=== PATIENT | female | born 1960 | race Caucasian/White ===

== ENCOUNTER 2016-08-18 06:07 | Inpatient (IN) ==
[2016-08-18] MEDS: *HR* HYDROcodone/Acet 5/325 mg TABLET PO PRN (00:02)
[2016-08-18] MEDS ORDERED: Albuterol 2.5 MG/3 ML NEBULIZER ONE (06:24)
[2016-08-18] MEDS ORDERED: Ringers Solution, Lactated 1,000 ML IVC SCH (06:30)
[2016-08-18] MEDS ORDERED: Albuterol 2.5 MG/3 ML NEBULIZER IH ONE (06:30)
[2016-08-18] MEDS ORDERED: CeFAZolin Pre 2,000 MG/100 ML 2,000 MG/100 ML BAG IVPB ONE (06:30)
[2016-08-18] MEDS ORDERED: Lidocaine -MPF 4% 5 ML AMPUL ONE (06:53)
[2016-08-18] MEDS ORDERED: Dexamethasone 4 MG/ML VIAL ONE (06:53)
[2016-08-18] MEDS ORDERED: Ondansetron 4 MG/2 ML VIAL ONE (06:53)
[2016-08-18] MEDS ORDERED: *HR* Rocuronium Bromide 50 MG/5 ML VIAL ONE ×2 (06:53→08:59)
[2016-08-18] MEDS ORDERED: Lidocaine -MPF 2% 2 ML VIAL ONE (06:53)
[2016-08-18] MEDS ORDERED: *HR* Propofol 200 MG/20 ML VIAL IVP ONE (06:55)
[2016-08-18] MEDS ORDERED: *HR* FentaNYL (PF) 100 MCG/2 ML VIAL ONE ×3 (06:55→10:05)
[2016-08-18] MEDS ORDERED: *HR* Midazolam HCl 2 MG/2 ML VIAL ONE (06:55)
--- NOTE | 2016-08-18 06:56 | Anesthesia Evaluation PreOp ---
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: Denies Any Significant HX Other Medical History: Denies Any Significant HX, GERD Anesthesia History: No Prior Anesthetic Complications, Past Anesthesia (Right ovarian cyst) : No Alcohol Use: none Drug use: none Medications and Allergies Lisinopril/Hydrochlorothiazide [Zestoretic 20-25 mg Tablet] 0.5 tab PO DAILY [History] Omeprazole [PriLOSEC] 20 mg PO DAILY 08/18/16 [History] Allergies No Known Allergies Allergy (Verified 08/18/16 06:52) - Meds/Allergy Pre-op Review Medications Reviewed: Yes Allergies Reviewed: Yes Beta Blockers on Current Med List: No Anesthesia Results - Labs Laboratory Tests 08/04/16 08/04/16 12:10 12:10 Hgb 14.5 Potassium 4.0 - Imaging EKG: image reviewed (NSR) Anesthesia Exam O2 Sat Height 1.59 m Height 1.59 m Height 1.59 m Weight 73.482 kg Weight 73.482 kg Weight 73.482 kg O2 Sat by Pulse Oximetry 92 Vital Signs Temp Pulse Resp BP Pulse Ox 98.3 F 57 18 131/73 92 L 08/18/16 06:26 08/18/16 06:26 08/18/16 06:26 08/18/16 06:26 08/18/16 06:26 Height: 5'2.5'' Weight: 164# - HEENT Pupil (Motor): Pupils equal, EOMI Mallampati: II Teeth: Normal Oral Opening: Greater than 3 - COORDINATE MEASURING MACHINE TECHNICIAN LOC: Oriented COORDINATE MEASURING MACHINE TECHNICIAN Motor: Normal RUE, Normal LUE, Normal RLE, Normal LLE, Normal Face - Cardiac Rhythm: Regular Murmur: None JVD: No - Pulmonary Breath Sounds: bilateral Clear Respiratory Effort: Symmetrical Anesthesia Assess/Plan ASA Score: 2 Modified Hannacroix Scale for Level of Consciousness: Cooperative, oriented, and tranquil Anesthetic Plan: General Autologous Blood: Yes Monitoring Plan: Standard Monitors Recovery Plan: PACU
--- NOTE | 2016-08-18 07:01 | Urology History & Physical ---
Date of Encounter: 08/18/16 Time of Encounter: 06:59 Assessment and Plan (1) Vaginal vault prolapse Current Visit: Yes Status: Acute plan to proceed with abd sacrocolpopexy after hysterectomy by LABOR RELATIONS OFFICER. all questions answered. History of Present Illness Chief complaint: prolapse HPI: Ms. Bender is a 56 year old female with significant vaginal vault prolapse. here for hysterectomy and ASCP. pt has no new issues. Past Med Surg Social Fam HX - Past Medical History Medical history: GERD, hypertension, other Psychiatric history: no psych history - Past Surgical History Surgical History: other - Social History Smoking Status: Current every day smoker Packs per day: 1 Smokeless Tobacco Status: No Alcohol use: none Drug use: none Medications and Allergies Lisinopril/Hydrochlorothiazide [Zestoretic 20-25 mg Tablet] 0.5 tab PO DAILY [History] Omeprazole [PriLOSEC] 20 mg PO DAILY 08/18/16 [History] Allergies No Known Allergies Allergy (Verified 08/18/16 06:52) Review of Systems - Cardiovascular no chest pain Exam Initial Vital Signs Temp Pulse Resp BP Pulse Ox 98.3 F 57 18 131/73 92 L 08/18/16 06:26 08/18/16 06:26 08/18/16 06:26 08/18/16 06:26 08/18/16 06:26 - General physical appearance Present: well developed, no distress - Abdomen Abdomen: Present: soft Urology Results - Labs All other labs normal.
[2016-08-18 07:12] LABS: Basophils # 0.1 K/mcL (0.0-0.2); Basophils % 0.7 %; Eosinophils # 0.3 K/mcL (0.0-0.6); Eosinophils % 2.7 %; Hematocrit 39.2 % (35.3-44.9); Hemoglobin 13.3 g/dL (11.5-15.4); Immature Granulocytes % 0.5 % (0-4); Lymphocytes # 4.6 K/mcL (0.6-4.6); Lymphocytes % 41.7 %; Mean Corpuscular HGB Conc 33.9 g/dL (31.6-35.5); Mean Corpuscular Hemoglobin 30.1 pg (28.0-33.3); Mean Corpuscular Volume 88.7 fL (83.0-100.0); Mean Platelet Volume 9.6 fL (9.4-12.4); Monocytes # 0.9 K/mcL (0.0-1.3); Monocytes % 8.3 %; Platelet Count 336 K/mcL (140-400); Red Blood Count 4.42 M/mcL (3.82-4.97); Red Cell Distribution Width 12.9 % (11.5-14.5); Segmented Neutrophils % 46.1 %
--- NOTE | 2016-08-18 07:52 | History & Physical Report ---
Date of Encounter: 08/18/16 Time of Encounter: 07:50 24 Hour HP Update - Instructions Instructions: If the History and Physical is less than 30 days old and was completed prior to A.M. admission and or procedure and has NOT been updated on calendar day of procedure please complete this update prior to performing procedure. - Update Patient reports changes in Medical Condition: No Changes in assessment/condition: No Changes in Medication: No Preop tests/diagnostics Reviewed: Yes Surgery Remains Indicated: Yes Consent for Planned Operative Procedure(s) Verified: Yes - Pre-Operative Checklist Preoperative Checklist Indicated: Yes Prophylactic Antibiotic Ordered: Yes Home Medications Include Beta Tan: No Beta Tan Taken Today (Day of Surgery): No Beta Tan Taken Yesterday (Day Prior to Surgery): No Is VTE Prophylaxis Indicated?: Yes
[2016-08-18] MEDS ORDERED: EPHEDrine 50 MG/ML VIAL ONE (08:31)
[2016-08-18] MEDS ORDERED: Water for inj. (sterile) 10 ML IV ONE (08:31)
[2016-08-18] MEDS ORDERED: *HR* Promethazine 25 MG/ML VIAL IVP PRN (08:42)
[2016-08-18] MEDS ORDERED: Ondansetron 4 MG/2 ML VIAL IVP ONE (08:42)
[2016-08-18] MEDS ORDERED: *HR* Labetalol 100 MG/20 ML MDV IVP PRN (08:42)
[2016-08-18] MEDS ORDERED: *HR* Meperidine 25 MG/ML SYRINGE IVP PRN (08:42)
[2016-08-18] MEDS ORDERED: Dexamethasone 4 MG/ML VIAL IVP ONE (08:42)
[2016-08-18] MEDS ORDERED: *HR* HYDROmorphone 2 MG/ML SYRINGE ONE (08:49)
[2016-08-18] MEDS ORDERED: Ketamine *HR* 500 MG/10 ML MDV ONE (09:01)
[2016-08-18] MEDS ORDERED: *HR* Phenylephrine 10 MG/ML VIAL ONE (09:04)
--- NOTE | 2016-08-18 10:28 | OB/GYN Procedure Note ---
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 An adequate level of general anesthesia was given. A acosta was placed and noted to be draining clear urine from the bladder. After the patient was prepped and draped in the usual sterile manner, a Pfannenstiel incision was made approx 2 finger breadths above the pubic symphysis. Subcutaneous tissue was incised until the level of the rectus fascia was reached. A rayo was made in the fascia. This was extended the length of the incision using Cullen scissors. The recti muscles were . The peritoneum was tented between two Lacie clamps, nicked with the knife and the incision extended vertically up and down taking care to avoid the bladder at the lower pole. The bowels grossly appeared normal. The uterus, tubes and ovaries were observed and noted to be normal. The Book Lei retractor was set up with paddings to assist with exposure. 0-vicryl suture was used to suture ligate the right round ligament. The bovie was used to transect the round ligament allowing entry through the anterior leaf of the broad ligament. The anterior leaf of the broad ligament was cut using Metzenbaum scissors. The bladder that was adherent to the anterior aspect of the uterus was gently dissected using sharp and blunt dissection and it was gently pushed down with the sponge on a stick. Two fingers were inserted through the posterior leaf of the right broad ligament and the tissue was cut with Metzenbaum scissors and and dissected bluntly. Another 0-vicryl suture was used to suture ligate the left round ligament and the bovie was used to transect the left round ligament. The anterior leaf of the broad ligament was cut with the Metzenbaum scissors and dissected bluntly. The right uterine artery was then skeletonized. The ligasure device was clamped at the level of the cervical os, cauterized and cut in 2 separate bites. Similar procedure was done on the opposite side. The bladder was further dissected down using a sponge on the stick. On the right cardinal ligament, a small bite of tissue was taken using the ligasure device cauterized and cut. The same procedure was done on the left cardinal ligament. The fundus was amputated from the cervix and handed over to the scrub nurse. The cervix was approximated using figure of 8 sutures of #0 Vicryl for hemostasis. Adequate hemostasis was assured. At this point, we let Dr Ventura know that he can begin his part, i.e. abd sacrocolpopexy.
[2016-08-18] MEDS ORDERED: Neostigmine Methylsulfate 3 MG/3 ML SYRINGE ONE (11:37)
[2016-08-18] MEDS: *HR* HYDROmorphone (PF) 1 MG/ML SYRINGE IVP PRN ×11 (12:36→20:41)
--- NOTE | 2016-08-18 13:27 | Operative Note ---
Date of procedure: 08/18/16 Pre-op diagnosis: Uterine prolapse. Vaginal vault prolapse Post-op diagnosis: same Procedure: Abdominal sacral colpopexy. Cystoscopy Anesthesia: LEAH Surgeon: Sudhir Ventura Estimated blood loss (cc): 200 Specimen: None Condition: stable Disposition: PACU Procedure in Detail: Dr. Go performed a supracervical hysterectomy prior to the abdominal sacral colpopexy. When I entered the room the patient was under general anesthesia, in dorsal lithotomy, catheter in place draining clear urine, Bookwalter retractor was in place with bowel packed superiorly. The hysterectomy site was dry without active bleeding. Both ovaries were in place appeared viable. I started the procedure by placing a bowel sizer within the vagina to manipulate the apex the vagina. I was able to identify the bladder and further dissect the bladder off of the anterior aspect of the vaginal wall. I had no apparent bladder injury during this maneuver. I continued my dissection on the posterior aspect of the vaginal apex as well. I reflected the posterior peritoneum off of these locations for future placement of the Y mesh. I opened the posterior peritoneum over the sacral promontory. I continued this incision down until it connected to the apex of the vagina. I was able to identify the right ureter and verify that it was not injured during the procedure. The iliac artery was also identified and uninjured during the procedure. I had adequate exposure at this point and began to place my sutures for the sacral colpopexy. A total of 8 2-0 Prolene sutures were placed in the anterior and posterior aspect of the apex of the vagina/cervix. I then secured the Y portion of the [employer] mesh product over the apex of the vagina using the preplaced 2-0 Prolene sutures. Excess mesh material was excised. A total of 4 2-0 Prolene sutures were placed in the ligaments near the sacral promontory. No significant bleeding was observed during placement of these sutures. I was careful to avoid the right ureter during placement of the sutures. I was able to manipulate the apex of the vagina superiorly towards the sacral promontory and secured the tail of the Y mesh to my 4 preplaced sutures. This completed the sacral colpopexy. The excess mesh material was excised. I then proceeded to remove the García catheter and performed a cystoscopy using a 30 and 70 lens. There was no evidence of bladder injury, Prolene suture present, significant distortion of the bladder. Both ureteral orifices had clear reflux of urine and it did not need to place a 5 Turkmen ureteral catheter for confirmation. The vagina appeared to be well supported at this point and there was no obvious need for a rectocele or cystocele repair. I then proceeded to close the posterior peritoneum with a running 2-0 Vicryl suture over the Y mesh. The García catheter had been replaced at this time and was draining clear urine. I removed the Bookwalter and packing. We confirmed all counts were correct. I reapproximated the anterior peritoneum and rectus muscle. The right rectus muscle was quite friable potentially from retraction with the Bookwalter. It was difficult to close in the midline. The fascia was closed with a running #1 loop PDS and came together without incident. Elvis's tissue was closed with a 2-0 running Vicryl and the skin with a 4-0 Monocryl subcuticular stitch with Steri-Strips. An abdominal binder was placed.
--- NOTE | 2016-08-18 14:16 | Anesthesia Evaluation Post Op ---
Date of Encounter: 08/18/16 Time of Encounter: 14:20 - Vital Signs Vital Signs: Vital Signs/O2 Sat/Glucose, Most Current Temp Pulse Resp BP Pulse Ox 08/18/16 13:57 63 20 148/78 98 08/18/16 13:47 97.8 F 74 20 151/86 98 08/18/16 13:37 68 20 154/99 98 08/18/16 13:27 71 20 149/89 98 08/18/16 13:17 97.8 F 69 20 158/98 98 08/18/16 13:07 71 20 167/86 99 08/18/16 12:57 71 20 177/87 99 08/18/16 12:47 98.4 F 71 20 167/93 99 08/18/16 12:37 85 16 179/104 100 08/18/16 12:27 73 16 184/88 100 08/18/16 12:17 97.3 F L 89 16 181/100 99 - Lungs Lungs: Clear Ascult./Percussion - Airway Airway: Non-obstructed - Cardiovascular Regular Rate - Mental Status Mental Status: Alert & Oriented, Answers Appropriately - Pain Pain Scale: 0 - Nausea Vomiting Nausea Vomiting: Not Present - Hydration Hydration: Ice chips - Discharge PostOp Status: Transfer Patient to floor
[2016-08-18] MEDS ORDERED: *HR* Morphine 2 MG/ML SYRINGE IVP PRN (14:58)
[2016-08-18] MEDS ORDERED: Naloxone 0.4 MG/ML INJ IVP PRN (14:58)
[2016-08-18] MEDS: 0.9 % Sodium Chloride 1,000 ML IVC SCH ×2 (16:09→23:40)
[2016-08-18] MEDS: Ketorolac 30 MG/ML VIAL IVP PRN (22:08)
[2016-08-19] MEDS: *HR* HYDROcodone/Acet 5/325 mg TABLET PO PRN ×4 (04:10→21:01)
[2016-08-19] MEDS: Ondansetron 4 MG/2 ML VIAL IVP PRN ×2 (05:20→21:38)
[2016-08-19 05:50] LABS: Hematocrit 33.9 % (35.3-44.9); Mean Corpuscular HGB Conc 33.3 g/dL (31.6-35.5); Mean Corpuscular Hemoglobin 30.1 pg (28.0-33.3); Mean Corpuscular Volume 90.4 fL (83.0-100.0); Mean Platelet Volume 10.4 fL (9.4-12.4); Platelet Count 293 K/mcL (140-400); Red Blood Count 3.75 M/mcL (3.82-4.97); Red Cell Distribution Width 13.2 % (11.5-14.5)
[2016-08-19 05:52] LABS: Hemoglobin 11.3 g/dL (11.5-15.4)
[2016-08-19 06:17] LABS: BUN/Creatinine Ratio 25 (6-26); Blood Urea Nitrogen 17 mg/dL (7-20); Calcium 8.3 mg/dL (8.6-10.8); Carbon Dioxide 26 mEq/L (19-29); Chloride 104 mEq/L (98-109); Glucose 99 mg/dL (70-99); Osmolality,Calculated 288 (280-300); Potassium 4.4 mEq/L (3.5-4.5); Sodium 138 mEq/L (136-145); eGFR For African Americans > 60 (> 60); eGFR For Non-African Americans > 60 (> 60)
--- NOTE | 2016-08-19 06:49 | Urology Progress Note ---
Date of Encounter: 08/19/16 Time of Encounter: 06:47 - Assessment and Plan (1) Vaginal vault prolapse Current Visit: Yes Status: Acute Assessment and plan: remove cath today. out of bed to chair today. hold advancing diet. decrease IVF. Progress Note Subjective: still having pain, nausea Objective Initial Vital Signs Temp Pulse Resp BP Pulse Ox 98.3 F 57 18 131/73 92 L 08/18/16 06:26 08/18/16 06:26 08/18/16 06:26 08/18/16 06:26 08/18/16 06:26 - General physical appearance Present: well developed, no distress - Additional Exam nondistended. incision closed intact. dressings removed. clear urine - Labs 08/19/16 04:30 08/19/16 04:30 Diabetes panel 08/19/16 Range/Units 04:30 Sodium 138 (136-145) mEq/L Potassium 4.4 (3.5-4.5) mEq/L Chloride 104 (98-109) mEq/L Carbon Dioxide 26 (19-29) mEq/L BUN 17 (7-20) mg/dL Creatinine 0.68 (0.57-1.11) mg/dL Glucose 99 (70-99) mg/dL Calcium 8.3 L (8.6-10.8) mg/dL Calcium panel 08/19/16 Range/Units 04:30 Calcium 8.3 L (8.6-10.8) mg/dL Pituitary panel 08/19/16 Range/Units 04:30 Sodium 138 (136-145) mEq/L Potassium 4.4 (3.5-4.5) mEq/L Chloride 104 (98-109) mEq/L Carbon Dioxide 26 (19-29) mEq/L BUN 17 (7-20) mg/dL Creatinine 0.68 (0.57-1.11) mg/dL Glucose 99 (70-99) mg/dL Calcium 8.3 L (8.6-10.8) mg/dL Adrenal panel 08/19/16 Range/Units 04:30 Sodium 138 (136-145) mEq/L Potassium 4.4 (3.5-4.5) mEq/L Chloride 104 (98-109) mEq/L Carbon Dioxide 26 (19-29) mEq/L BUN 17 (7-20) mg/dL Creatinine 0.68 (0.57-1.11) mg/dL Glucose 99 (70-99) mg/dL Calcium 8.3 L (8.6-10.8) mg/dL - VTE Documentation of Mechanical Device: Intermittent pneumatic compression device Consult Discharge Plan - Plan Referrals: Wendy Wellington CNP [Primary Care Provider] -
[2016-08-19] MEDS: 0.9 % Sodium Chloride 1,000 ML IVC SCH (07:48)
[2016-08-19] MEDS ORDERED: Ondansetron 4 MG/2 ML VIAL IVP PRN (22:13)
[2016-08-19] MEDS: Simethicone 80 MG TAB.CHEW PO PRN (22:29)
--- NOTE | 2016-08-19 23:22 | Event Note ---
Date of Encounter: 08/19/16 Time of Encounter: 23:22 Patient complaining of nausea unrelieved by Zofran 4 mg. Gave another 4 mg with significant improvement in symptoms. Pt then reported that she was having difficulty taking deep breaths, same chest wall stiffness demonstrated while using her incentive spirometer. Additionally, pt complaining of right neck muscle stiffness from the base of her neck radiating to right shoulder after sleeping in an awkward position with pillow. On exam, pt is sitting on side of bed rubbing her neck, with shallow breathing regular rate of 12-14, lungs clear throughout, mild abdominal pain 5/10 with minimal tenderness to palpation, heart RRR s1,s2. SCM hypertonicity on the right , rib somatic dysfunction. Discussed OMM Therapy risks and benefits. Pt gave verbal consent. Cervical myofascial release, OA release and thoracic inlet, and Rib raising techniques discussed for later treatment.
[2016-08-20] MEDS: Ketorolac 30 MG/ML VIAL IVP PRN ×2 (02:37→17:09)
--- NOTE | 2016-08-20 06:43 | Discharge Summary ---
Date of Encounter: 08/20/16 Time of Encounter: 06:41 - Discharge Diagnosis (1) Vaginal vault prolapse Priority: Primary Status: Resolved - Discharge Medications Prescriptions: HYDROcodone/Acet 5/325 mg [Lowry 5-325 mg] 1 tab PO Q4H PRN #30 tab PRN Reason: Pain Home Medications: Lisinopril/Hydrochlorothiazide [Zestoretic 20-25 mg Tablet] 0.5 tab PO DAILY [History] Omeprazole [PriLOSEC] 20 mg PO DAILY 08/18/16 [History] HYDROcodone/Acet 5/325 mg [Lowry 5-325 mg] 1 tab PO Q4H PRN #30 tab 08/20/16 [Rx ] Allergies/Adverse Reactions: Allergies No Known Allergies Allergy (Verified 08/18/16 06:52) Date of admission: 08/18/16 14:57 Primary care physician: Wendy Wellington, Discharging clinician: Sudhir Ventura Anticipated date of discharge: 08/20/16 - Patient Status Disposition: Home, Self-Care Condition: Good Functional capacity at discharge: independent ambulation Overall status at discharge: patient is progressing back to baseline - Discharge Instructions Follow Up With: Wendy Wellington CNP [Primary Care Provider] - Sudhir Ventura MD [Partnered Physician] - (2-4 weeks. ) Cuauhtemoc Go MD [Partnered Physician] - (4 weeks. ) Additional Instructions: OK to shower no baths or swimming Ok to ambulate and perform light duty activities avoid heavy lifting or activity for at least [address] for at least 2 weeks or until off pain meds nothing per vagina some incontinence will be normal. will discuss at followup - Diet and Activity Activity: other Diet: advance to your usual diet - Hospital Course Hospital course: Ms. Bender is a 56 year old female POD#2 hysterectomy and abd sacral colpopexy. pt doing well. tolerating diet and fluids. able to get out of bed. pain is controlled. ambulating. - Time Spent with Patient Total time spent providing and/or coordinating discharge services: Less than 30 minutes Exam Initial Vital Signs Temp Pulse Resp BP Pulse Ox 98.3 F 57 18 131/73 92 L 08/18/16 06:26 08/18/16 06:26 08/18/16 06:26 08/18/16 06:26 08/18/16 06:26 - General physical appearance Present: well developed, no distress - Additional Findings incision intact and closed. mild bruising. - VTE Documentation of Mechanical Device: Intermittent pneumatic compression device
[2016-08-20] MEDS: Simethicone 80 MG TAB.CHEW PO PRN (08:29)
[2016-08-20] MEDS ORDERED: Ondansetron ODT 4 MG TAB.RAPDIS SL ONE (10:09)
[2016-08-20] MEDS: *HR* HYDROcodone/Acet 5/325 mg TABLET PO PRN (12:16)
[2016-08-20] MEDS ORDERED: Ondansetron 4 MG/2 ML VIAL IVP PRN (15:42)
[2016-08-20] MEDS ORDERED: *HR* Promethazine 25 MG/ML VIAL IVP PRN (15:42)
[2016-08-20] MEDS ORDERED: Bisacodyl 10 MG RECTAL SUPPOSITORY RC SCH (15:45)
--- NOTE | 2016-08-20 15:47 | Event Note ---
Date of Encounter: 08/20/16 Time of Encounter: 15:46 pt with some nausea without vomiting. cancel discharge. restart IVF 75 cc/hr. dulcolax suppository, zofran and phenergan.
[2016-08-20] MEDS: 0.9 % Sodium Chloride 1,000 ML IVC SCH (16:31)
[2016-08-21 08:30] VITALS: BP 150/88
--- NOTE | 2016-08-21 09:22 | Urology Progress Note ---
Date of Encounter: 08/21/16 Time of Encounter: 09:22 - Assessment and Plan (1) Vaginal vault prolapse Current Visit: Yes Status: Resolved Assessment and plan: ok to discharge today. Progress Note Subjective: feels better Narrative: passing flatus. nausea Objective Initial Vital Signs Temp Pulse Resp BP Pulse Ox 98.3 F 57 18 131/73 92 L 08/18/16 06:26 08/18/16 06:26 08/18/16 06:26 08/18/16 06:26 08/18/16 06:26 - General physical appearance Present: well developed, no distress - Labs 08/19/16 04:30 08/19/16 04:30 - VTE Documentation of Mechanical Device: Intermittent pneumatic compression device Consult Discharge Plan - Plan Instructions: Abdominal Hysterectomy (DC) Additional Instructions: OK to shower no baths or swimming Ok to ambulate and perform light duty activities avoid heavy lifting or activity for at least 4 weeks [address] for at least 2 weeks or until off pain meds nothing per vagina some incontinence will be normal. will discuss at followup There are many types of gynecologic surgery. Below, you will find groups of instructions related to caring for yourself after your procedure. there may be instructions that do not apply to you depending on the procedure that you had. Before you go home, your nurse will explain these instructions and let you know any special instructions that you may have. MEDICATIONS: -Continue taking your home medications as prescribed by your doctor prior to surgery. You will be notified of any changes in home medications before leaving the hospital. -A prescription for pain medication may be given to you. Take it as directed. It is important to control your pain during recovery. -Do not stop taking antibiotics if they were prescribed for you. Take them until they are all gone. Antibiotics are sometimes used to prevent infection after surgery. BOWEL MOVEMENTS: -You may not have a bowel movement for a few days after surgery. The first one may be difficult to pass. Do not strain in order to go, and allow yourself plenty of time when going for the first time following your surgery. -To help soften your stool, eat a diet high in fiber. This includes foods such as cereals, whole grain breads and vegetables. You can also take a fiber supplement or stool softeners, which your provider may prescribe for you. DIET: -Your appetite may be decreased following surgery. You will be eating regular food before you are discharged from the hospital. Start out with small amounts of food and increase your meals as you are able to tolerate them without feeling nauseated. -Eat healthy foods to help you heal more quickly and increase your energy. Avoid foods that cause gas, as this will make you feel uncomfortable. -Drink 6-8 glasses of water each day. SMOKING: -Smoking increases your chances of post-surgical complications. It is never too late to quit. Ask your nurse or provider for information to help you quit smoking. ACTIVITY: -Restrict yourself to light activity and increase your activity level slowly, resting frequently. -Be aware your pain medication may cause drowsiness. -It usually takes 4-8 weeks for the body to heal. -You may walk slowly. Limit stair climbing. Do not exercise until the provider tells you it is safe to do so. -No douching, tampons or sex for 6 weeks. This will allow time for healing. You can no longer get after having a hysterectomy but will still need to protect yourself from sexually transmitted diseases. -Lift nothing heavier than 10-15 pounds for 2 weeks. -You can drive in about 2 weeks, unless otherwise instructed by your provider. -You can expect to return to work or school and other normal activities in about 6 weeks or as directed by your provider. -When you get home, you may shower normally. If you have an incision, wash the area with soap and water and dry thoroughly after showering. You may have steri -strips (thin strips of tape used to help hold the incision together while it heals). If these are present, do not remove them. Keep the area of your incision clean and dry. STRESS AND MOOD -A hysterectomy may change the way that you view yourself. These are normal feelings. Talk to your family and health care provider about these feelings. If you feel depressed, seek counseling or talk to your provider about treatment options. It is important in the healing process to have a healthy mind. WHEN TO CALL THE DOCTOR: -If your stitches are swollen, red or have drainage coming from them or if you notice them coming apart. It is normal for your incision to feel numb up to a year. -If you are having chills, fever or a reaction to your medicine. -If your incision is bleeding or you have increased pain in your incision. -If within an hour you have soaked a sanitary pad with vaginal bleeding. -If you are unable to urinate or it has been 4-6 hours since you have urinated. Also, if you have burning with urination or feel like you cant completely empty your bladder; call your provider for further instructions. -If you have a smelly discharge coming from your incision or vagina. -If you have any questions about your surgery or medications. If you have difficulty breathing, chest pain, uncontrolled bleeding or any other emergency, call 911 or report to the nearest emergency department immediately. Referrals: Wendy Wellington CNP [Primary Care Provider] - Cuauhtemoc Go MD [Partnered Physician] - (4 weeks. ) Sudhir Ventura MD [Partnered Physician] - (2-4 weeks. ) Prescriptions: HYDROcodone/Acet 5/325 mg [Dodge 5-325 mg] 1 tab PO Q4H PRN #30 tab PRN Reason: Pain Ondansetron HCl [Zofran] 4 mg PO Q6-8H PRN #40 tablet PRN Reason: Nausea
== END 2016-08-21 10:27 | disposition home or self-care (01) | DRG 743 ==
LOC: SAMDAY 06:07 → 1NENUOBS 14:57
PROVIDERS: ADMIT Student in an Organized Health Care Education/Training Program; ATTEND Student in an Organized Health Care Education/Training Program